=== PATIENT | male | born 1990 | race Two or more races ===

== ENCOUNTER 2018-05-26 10:19 | Emergency (ER) | payer SELFPAY ==
[~2018-05-26] VITALS: Ht 162.6 cm; Wt 74.8 kg
[2018-05-26 10:53] VITALS: BP 144/78
[2018-05-26] MEDS ORDERED: HYDROcodone/APAP 5/325MG 1 TAB TABLET PO ONE (11:15)
[2018-05-26] MEDS ORDERED: CLIN150C14 PO (11:16)
--- NOTE | 2018-05-26 11:16 | PHYS DOC ---
Past Medical History Past Medical History: No Pertinent History Past Surgical History: No Surgical History Alcohol Use: Occasionally Drug Use: None Adult General Chief Complaint Chief Complaint: DENTAL PROBLEM HPI HPI Patient is a 27 year old male who presents to the ER wt complaints of dental pain above his front tooth for the last 4 days. He denies any injury, nausea, vomiting, or drainage. States he has not measured a fever but he felt hot a few days ago. Review of Systems Review of Systems Constitutional: Denies fever or chills, reports feeling hot a few days ago [] HENT: Denies nasal congestion or sore throat, reports dental pain see HPI [] GI: Denies abdominal pain, nausea or vomiting Integument: Denies rash or skin lesions [] Neurologic: Denies headache, focal weakness or sensory changes [] All other systems were reviewed and found to be within normal limits, except as documented in this note. Physical Exam Physical Exam Constitutional: Well developed, well nourished, no acute distress, non-toxic appearance. [] HENT: Normocephalic, atraumatic, bilateral external ears normal, oropharynx moist, no oral exudates, nose normal; fluctuant 0.5 cm abscess noted above tooth #8 [] Eyes: PERRLA, conjunctiva normal, no discharge. [] Skin: Warm, dry, no erythema, no rash. [] Back: No tenderness, no CVA tenderness. [] Neurologic: Alert and oriented X 3, normal motor function, normal sensory function, no focal deficits noted. [] Psychologic: Affect normal, judgement normal, mood normal. [] Current Patient Data Vital Signs Vital Signs Date Time Temp Pulse Resp B/P (MAP) Pulse Ox O2 Delivery O2 Flow Rate FiO2 05/26/18 10:53 97.9 83 18 144/78 (100) 100 Room Air 97.9 EKG EKG [] Radiology/Procedures Radiology/Procedures Dental abscess was drained using a 20 g needle. No anesthesia prior to procedure. A large amount of bloody pus was expressed. Pt tolerated the procedure well. [] Course & Med Decision Making Course & Med Decision Making Pertinent Labs and Imaging studies reviewed. (See chart for details) Dx: dental abscess Rx for Clindamycin written. Follow up with your dentist this week. Patient verbalized an understanding of home care, medications, follow-up, and return to ED instructions and was in agreement with the plan of care. [] Dragon Disclaimer Dragon Disclaimer This electronic medical record was generated, in whole or in part, using a voice recognition dictation system. Departure Departure Impression: Primary Impression: Dental abscess Disposition: 01 HOME, SELF-CARE Condition: STABLE Referrals: NO PCP (PCP) Patient Instructions: Dental Abscess Additional Instructions: Fill prescription and use as directed. Follow up with your dentist next week. Take tylenol or ibuprofen as needed for pain. Return to the ER if symptoms worsen. Scripts Clindamycin Hcl (CLINDAMYCIN HCL) 150 Mg Capsule 450 MG PO TID for 10 Days, #90 CAP 0 Refills Prov: KALIN [employer]GA [employer] 05/26/18 KALIN [employer] May 26, 2018 11:16
== END 2018-05-26 11:28 | disposition home or self-care (01) ==
LOC: ER 10:19
DX: K04.7 Periapical abscess without sinus (principal)
CPT/HCPCS: 99283